=== PATIENT | male | born 1955 | race Caucasian/White ===

== ENCOUNTER → 2017-01-06 | Outpatient (CLI) | payer MEDICARE, BC ==
--- NOTE | 2017-01-06 17:07 | MR ---
EXAMINATION TYPE: MR angio head wo con DATE OF EXAM: 01/06/2017 4:36 PM COMPARISON: MR brain same date HISTORY: Glossodynia and headaches TECHNIQUE: Time of flight images focusing on the [place] were performed without contrast. Th ree-dimensional reconstructions were performed. FINDINGS: The internal carotid arteries, vertebrobasilar system are patent. Left vertebral artery is dominant. No evident vasculitis. There is no evident aneurysm or vascular malformation. IMPRESSION: No significant abnormality is evident to account for patient's symptoms.
--- NOTE | 2017-01-06 17:14 | MR ---
MRI brain without contrast HISTORY: Headaches, glossodynia Multiplanar multisequence imaging obtained through the brain. Correlation to MRA brain same date There is no restricted diffusion. There is no hemorrhage or hydrocephalus. Scattered hyperintensities are present within the deep white matter on inversion recovery and T2-weighted sequences, approximat lazaro 20-30 lesions are present. There is cortical atrophy present. Mucosal disease present within the maxillary sinus, ethmoid air cells. The orbits show a symmetric appearance. Corpus callosum, pituitar y, cervical medullary junction, cerebellopontine angles are within normal limits. IMPRESSION: Age-related changes of atrophy and probable chronic small vessel ischemia. Mild sinus dis ease.
== END | disposition home or self-care (01) ==
LOC: RADMRIMAIN 15:26
PROVIDERS: ATTEND Nurse Practitioner Family
DX: G31.1 Senile degeneration of brain, not elsewhere classified (principal); K14.6 Glossodynia
CPT/HCPCS: 70544; 70551

== ENCOUNTER → 2017-04-15 | Outpatient (CLI) | payer MEDICARE, BC ==
[2017-04-15 07:37] LABS: CH 27.1; CHCM 32.2; HCT 48.6 % (39.0-53.0); HDW 2.28; HGB 15.7 gm/dL (13.0-17.5); MCH 27.3 pg (25.0-35.0); MCHC 32.3 g/dL (31.0-37.0); MCV 84.5 fL (80.0-100.0); Mean Platelet Volume 8.1; RBC 5.75 m/uL (4.30-5.90); RDW 13.4 % (11.5-15.5); WBC 9.5 k/uL (3.8-10.6)
[2017-04-15 16:10] LABS: Carbamazepine (Tegretol) 7.6 ug/mL; Potassium 3.9 mmol/L (3.5-5.1)
== END | disposition home or self-care (01) ==
LOC: LABWHC1 06:33
PROVIDERS: ATTEND Psychiatry & Neurology Neurology
DX: Z51.81 Encounter for therapeutic drug level monitoring (principal); Z79.899 Other long term (current) drug therapy
CPT/HCPCS: 36415; 80051; 80156; 82565; 84520; 85027

== ENCOUNTER → 2017-06-04 | Outpatient (CLI) | payer MEDICARE, BC ==
[2017-06-04 07:02] LABS: CH 26.8; HCT 49.7 % (39.0-53.0); HDW 2.25; HGB 16.8 gm/dL (13.0-17.5); MCH 27.8 pg (25.0-35.0); MCHC 33.9 g/dL (31.0-37.0); MCV 81.8 fL (80.0-100.0); Mean Platelet Volume 8.2; RBC 6.07 m/uL (4.30-5.90); RDW 13.4 % (11.5-15.5); WBC 9.7 k/uL (3.8-10.6)
[2017-06-04 07:14] LABS: Potassium 4.1 mmol/L (3.5-5.1)
[2017-06-04 10:25] LABS: Carbamazepine (Tegretol) 8.1 ug/mL
== END | disposition home or self-care (01) ==
LOC: LABWHC1 06:39
PROVIDERS: ATTEND Psychiatry & Neurology Neurology
DX: Z51.81 Encounter for therapeutic drug level monitoring (principal); Z79.899 Other long term (current) drug therapy
CPT/HCPCS: 36415; 80051; 80156; 82565; 84520; 85027

== ENCOUNTER → 2017-08-03 | Outpatient (CLI) | payer MEDICARE, BC ==
--- NOTE | 2017-08-03 07:41 | US ---
EXAMINATION TYPE: US kidneys/renal and bladder DATE OF EXAM: 08/03/2017 COMPARISON: 08/03/2015 CLINICAL HISTORY: N18.9 Chronic Kidney Disease, unspecified. EXAM MEASUREMENTS: Right Kidney: 12.1 x 6.7 x 5.6 cm Left Kidney: 12.3 x 7.0 x 5.7 cm Right Kidney: No hydronephrosis or masses seen Left Kidney: Multiple cysts the largest as follows 1.) upper pole, 9.6 x 8.2 x 8.4cm, 2.) mid pole, 6 .4 x 5.1 x 5.9cm, 3.) lower pole, 1.5 x 1.4 x 1.5cm . The largest cyst has increased from the prior e xam where it measured 6.5 x 8.3 x 7.0 cm. Bladder: wnl Bilateral Jets seen: yes There is no evidence for hydronephrosis at this point in time. Cortical medullary differentiation is maintained. No cortical thinning. No nephrolithiasis is seen. The urinary bladder is anechoic. Bila teral ureteral jets are seen. IMPRESSION: Multiple enlarging simple appearing left renal cysts, the largest measuring up to 9.6 cm.
== END | disposition home or self-care (01) ==
LOC: RADUSWWP 06:51
PROVIDERS: ATTEND Family Medicine
DX: N28.1 Cyst of kidney, acquired (principal); N18.9 Chronic kidney disease, unspecified
CPT/HCPCS: 76770

== ENCOUNTER 2019-04-26 08:13 | Day surgery (SDC) | payer MEDICARE ==
[2019-04-25 08:42] VITALS: BMI 35.5
[~2019-04-26 08:13] MED LIST: LACTATED RINGERS 1,000 ML IV SCH
[2019-04-26 08:38] VITALS: TEMP 96.9
[2019-04-26] MEDS ORDERED: MIDAZOLAM 2 MG/2 ML VIAL ONE (10:16)
[2019-04-26] MEDS ORDERED: PROPOFOL 10 MG/ML 20 ML VIAL IV ONE (10:16)
[2019-04-26] MEDS ORDERED: fentaNYL (PF) 50 MCG/ML 2 ML AMP ONE (10:16)
[2019-04-26] MEDS ORDERED: LIDOCAINE 1% INJ 10MG/ML (20 ML MDV) ONE (10:16)
--- NOTE | 2019-04-26 10:47 | P.PCN ---
Date of Procedure: 04/26/19 Procedure(s) Performed: Procedure: Colonoscopy and polypectomy. Preoperative diagnosis: Screening for neoplasia. Postoperative diagnosis: 1. Small cecal polyp snared but no large polyps or cancer. 2. Diverticulosis with no evidence of acute diverticulitis or strictures. Preparation: HalfLytely prep. Sedation: Was provided by anesthesia Brief clinical history: The patient is a 63-year-old male who is scheduled for this evaluation for screening for neoplasia age being his risk factor. He had a prior exam more than 14 years ago. The patient does no abdominal complaints, bleeding or anemia. Procedure: With the patient on his left lateral decubitus position and after informed consent and the perianal area was inspected and it did not show any fissures or fistulas. No masses were felt on digital rectal examination. The Olympus CFH 190L video colonoscope was then inserted in the rectum in the usual fashion and advanced to the cecum. There were multiple diverticular orifices seen scattered in the sigmoid and left side with occasional orifice around the hepatic flexure and on the right side. No evidence of diverticulitis or strictures. The mucosa appeared healthy. There was a small polyp in the cecum which was snared and retrieved by suction but there were no large polyps or cancer. I retroflexed the endoscope in the rectum before the endoscope was withdrawn. The patient tolerated the procedure well. Plan: The patient was reassured. Will await pathology results and likely r ecommend repeat exam in around 5 years.
[2019-04-26 10:50] VITALS: PULSE 53; RESP 16
[2019-04-26 11:08] VITALS: BP 120/77
== END 2019-04-26 11:29 | disposition home or self-care (01) ==
LOC: ORWHC2ENDO 08:13
DX: Z12.11 Encounter for screening for malignant neoplasm of colon (principal); D12.0 Benign neoplasm of cecum; K57.30 Diverticulosis of large intestine without perforation or abscess without bleeding; G47.33 Obstructive sleep apnea (adult) (pediatric); I12.9 Hypertensive chronic kidney disease with stage 1 through stage 4 chronic kidney disease, or unspecified chronic kidney disease; N18.9 Chronic kidney disease, unspecified; M19.90 Unspecified osteoarthritis, unspecified site; Z88.5 Allergy status to narcotic agent; Z88.0 Allergy status to penicillin; Z99.89 Dependence on other enabling machines and devices; Z79.82 Long term (current) use of aspirin; Z79.899 Other long term (current) drug therapy; Z86.73 Personal history of transient ischemic attack (TIA), and cerebral infarction without residual deficits; Z91.030 Bee allergy status
CPT/HCPCS: 88305; 45385; J2250; J2001; J3010; J2704

== ENCOUNTER → 2019-10-10 | Outpatient (CLI) | payer MEDICARE ==
[2019-10-10 14:43] LABS: HCT 49.6 % (39.0-53.0); HGB 16.4 gm/dL (13.0-17.5); MCHC 33.1 g/dL (31.0-37.0); MCV 84.4 fL (80.0-100.0); Mean Platelet Volume 7.1; Platelet Count 173 k/uL (150-450); RBC 5.87 m/uL (4.30-5.90); RDW 12.3 % (11.5-15.5); WBC 7.9 k/uL (3.8-10.6)
[2019-10-10 15:29] LABS: Appearance,Urine Clear (Clear); Bilirubin,Urine Negative (Negative); Blood,Urine Negative (Negative); Color,Urine Yellow; Glucose,Urine (UA) Negative (Negative); Ketones,Urine Negative (Negative); Leukocyte Esterase,Urine Negative (Negative); Nitrite,Urine Negative (Negative); Protein,Urine Negative (Negative); Specific Gravity,Urine 1.018 (1.001-1.035); Urobilinogen,Urine <2.0 mg/dL (<2.0)
[2019-10-10 18:03] LABS: Carbamazepine (Tegretol) 10.1 ug/mL (4.0-12.0)
[2019-10-10 18:59] LABS: % Iron Saturation 45.99 (15.00-50.00); African American GFR (CKD) 55.8 (60.0-200.0); Albumin 4.7 g/dL (3.80-4.90); Albumin/Globulin Ratio 2.61 (1.60-3.17); Anion Gap 10.8 mmol/L (4.00-12.00); BUN/Creat Ratio 23.33 Ratio (12.00-20.00); Calcium 9.3 mg/dL (8.7-10.3); Carbon Dioxide 30.2 mmol/L (21.6-31.8); Globulin 1.8 g/dL (1.6-3.3); Magnesium 2.3 mg/dL (1.5-2.4); Phosphorus 3.9 mg/dL (2.4-5.1); Potassium 4.6 mmol/L (3.5-5.5); Total Bilirubin 0.4 mg/dL (0.3-1.2); Total Protein 6.5 g/dL (6.2-8.2); Uric Acid 5.5 mg/dL (3.7-8.7)
[2019-10-10 19:02] LABS: Ferritin 403.3 ng/mL (22.0-322.0)
== END | disposition home or self-care (01) ==
LOC: LABWHC1 13:02
PROVIDERS: ATTEND Internal Medicine
DX: N39.0 Urinary tract infection, site not specified (principal); M10.9 Gout, unspecified; N25.81 Secondary hyperparathyroidism of renal origin; D63.1 Anemia in chronic kidney disease; N18.3 Chronic kidney disease, stage 3 (moderate); Z79.899 Other long term (current) drug therapy
CPT/HCPCS: 36415; 80053; 80156; 81003; 82728; 83540; 83550; 83735; 83970; 84100; 84550; 85027

== ENCOUNTER → 2020-06-28 | Outpatient (CLI) | payer MEDICARE ==
--- NOTE | 2020-06-28 13:20 | CONS ---
CONSULTATION DATE OF SERVICE: 06/28/2020 A 64-year-old gentleman who has been evaluated in the Sleep Clinic for obstructive sleep apnea-hypopnea syndrome. Last time patient was seen in our office in 2011. At that time, he had CPAP titration which showed that effective pressure for treatment of obstructive sleep apnea-hypopnea syndrome was 12 cm of water. According to the patient, he continued to use his CPAP equipment until recently when CPAP unit was broke. Presently, his sleep schedule from around 8 pm until 8 am. He does have problem with falling asleep. He has TV set in bedroom. He wakes up from sleep up to 5 times. No history of hypnagogic hallucinations, sleep paralysis or cataplexy. Presently while he does not have machine, he wakes up with stop breathing during the sleep, gasping for air, sweating, sleep talking. In the morning, he wakes up tired, falling asleep during the day, worry about his sleep, has sexual dysfunction. [place] Sleepiness Scale is 7. PAST MEDICAL HISTORY: Positive for hypertension, pericarditis, hyperlipidemia, panic attacks. PAST SURGICAL HISTORY: Surgery for pericarditis, cardiac ablation, sinus surgery, L3-L4 laminectomy. Wrist surgery in 2017.: MEDICATIONS: Clonazepam, amlodipine, . SOCIAL HISTORY: Negative for smoking or using alcohol. REVIEW OF SYSTEMS: Multiple awakenings from sleep. FAMILY HISTORY: Heart problems. PHYSICAL EXAM: gentleman without distress, BP 167/80, HR 68, RR 15, height 5, 10-1/2, weight 261 pounds and body mass index 36.9. Neck is 17-1/2 inches in circumference. Temperature 98.0. Oxygen saturation on room air 97%. Oropharynx - low position of soft palate. ABDOMEN: Obese. NECK: Supple, no JVD. Thyroid is not palpable. LUNGS: Clear to percussion and to auscultation. Good air exchange. No wheezing or rhonchi. HEART: S1, S2 regular. No murmurs, gallops, or rubs. EXTREMITIES: No clubbing or cyanosis. PROFILING MACHINE SET UP OPERATOR TOOL: Awake, alert, and oriented X3. Cranial nerves 2 to 7 intact. There is no fasciculation or atrophy. noted. No focal deficits observed. IMPRESSION: 1. History of obstructive sleep apnea, multiple awakenings from sleep, wide neck. Obstructive sleep apnea-hypopnea syndrome. 2. Obesity, body mass index 36.93. 3. Hypertension. 4. Status post surgical treatment for pericarditis in the past. 5. Status post cardiac ablation. 6. Hyperlipidemia. 7. History of panic attack. 8. Status post sinus surgery. 9. Status post L3-L4 laminectomy. 10.Status post recent surgery 2017. PLAN: 1. Home sleep apnea test for reevaluation of patient breathing at the present time. 2. CPAP titration for correction of respiratory abnormalities at the present time and to check what type of PAP unit he needs. 3. Losing weight. 4. Sleep hygiene with regular time on bed for least 7-1/2 to 8 hours. 5. No driving if feeling sleepiness. Thank you very much for allowing me to participate in the management of your patient. Sincerely, Zcaarias Renee MD, PhD, FAASM Diplomat of [place] [employer] [place] [employer] Parking Meter Collector of [facility] [place] MMODL / SARIN: [id number] /
== END | disposition home or self-care (01) ==
LOC: SLEEP 11:42
PROVIDERS: ATTEND Internal Medicine
DX: G47.33 Obstructive sleep apnea (adult) (pediatric) (principal); E66.9 Obesity, unspecified; I10 Essential (primary) hypertension; E78.5 Hyperlipidemia, unspecified; Z68.36 Body mass index [BMI] 36.0-36.9, adult; Z98.890 Other specified postprocedural states; Z86.59 Personal history of other mental and behavioral disorders; Z79.899 Other long term (current) drug therapy
CPT/HCPCS: 99211

== ENCOUNTER → 2020-11-29 | Outpatient (CLI) | payer MEDICARE ==
--- NOTE | 2020-11-29 23:41 | SFUN ---
SLEEP CENTER FOLLOW UP NOTE DATE OF SERVICE: 11/29/2020 64-year-old gentleman who has been followed in Sleep Center for treatment of obstructive sleep apnea-hypopnea syndrome. Recently, patient had a home sleep apnea test which showed severe sleep apnea. I discussed results of the sleep study with the patient and he had CPAP titration. During titration, his respiration fully normalized. Then, patient was started on treatment with CPAP. Today is his first visit after he started BiPAP therapy. With the CPAP patient sleeps better and feels better during the day. Today's his [place] Sleepiness Scale is 3. He mentioned that he is using his machine every night religiously and he likes it and he feels better in it. I checked his CPAP unit. CPAP pressure is 12 cm of water. Usage is 100% of nights. Average usage 11.5 hours per night. Leak is 25 L/minute. Apnea-hypopnea index is only 0.4. During the home sleep apnea test, apnea-hypopnea index was 66.2 with oxygen desaturation to 75%. MEDICATIONS: Amlodipine, hydrochlorothiazide, carbamazepine, metoprolol, gabapentin, duloxetine, atorvastatin, aspirin, clonazepam. PHYSICAL EXAM: Patient in no distress. BP 153/82, HR 70, RR 15, weight 260.6 pounds. Temperature 98.4, oxygen saturation at room air 95%. Oropharynx: Low position of soft palate. NECK: Supple, no JVD. Thyroid is not palpable. LUNGS: Clear to percussion and to auscultation. Good air exchange. No wheezing or rhonchi. HEART: S1, S2 regular. No murmurs, gallops, or rubs. ABDOMEN: Obese. Soft and nontender. Bowel sounds are present. No organomegaly appreciated. EXTREMITIES: No clubbing or cyanosis. PRIVATE ADVISOR: Awake, alert, and oriented X3. Cranial nerves 2 to 7 intact. There is no fasciculation or atrophy. noted. No focal deficits observed. IMPRESSION: 1. Obstructive sleep apnea-hypopnea syndrome. Patient demonstrated 100% compliance with treatment, benefitting from treatment. 2. Obesity. 3. Hypertension. 4. Status post surgical treatment for pericarditis in the past. 5. Status post cardiac ablation. 6. Hyperlipidemia. 7. History of panic attack. 8. Status post sinus surgery. 9. Status post L3-L4 laminectomy. PLAN: 1. Patient will continue to use PAP equipment every night for the whole night. 2. Sleep hygiene with regular time in bed for at least 7-1/2 to 8 hours. 3. Precautions related to driving. No driving if feeling sleepiness. 4. I will maintain all necessary prescription for PAP supplies including mask, tube, filters. 5. Watching weight. 6. No driving if feeling sleepiness. 7. Follow-up visit in 6 months or earlier if patient has any problems. Thank you very much for allowing me to participate in the management of your patient. Sincerely, Zacarias Renee MD, PhD, FAASM Diplomat of [place] [employer] [place] [employer] Food And Beverage Analyst of [facility] [place] MMODL / IJN: [id number] /
== END | disposition home or self-care (01) ==
LOC: SLEEP 15:52
PROVIDERS: ATTEND Internal Medicine
DX: G47.33 Obstructive sleep apnea (adult) (pediatric) (principal); E66.9 Obesity, unspecified; I10 Essential (primary) hypertension; E78.5 Hyperlipidemia, unspecified; Z99.89 Dependence on other enabling machines and devices; Z98.890 Other specified postprocedural states; Z86.61 Personal history of infections of the central nervous system

== ENCOUNTER → 2021-06-13 | Outpatient (CLI) | payer MEDICARE ==
--- NOTE | 2021-06-13 20:29 | SFUN ---
SLEEP CENTER FOLLOW UP NOTE DATE OF SERVICE: 06/13/2021 65-year-old gentleman has been followed in Sleep Center for treatment of obstructive sleep apnea-hypopnea syndrome. Patient continued to use his CPAP equipment every night for the whole night. He does not snore with the machine. [place] Sleepiness Scale today is 2, which is absolutely normal. I checked CPAP unit and the filter is in very bad shape, looks dirty. CPAP 12 cm of water, usage 30/30 nights for more than 4 hours, average of 1.2 hours per night. Leak is 30 L/minute, which is slightly high. Patient had said that possibly he will open his mouth during sleep. He is using a nasal mask. Apnea-hypopnea index is only 0.7, which is totally normal. MEDICATIONS: Carbamazepine 400 mg twice a day. Gabapentin 600 mg as needed, clonazepam 2 mg twice a day, amlodipine 10 mg once a day. Duloxetine 60 mg once a day, Triamterene once a day. Metoprolol 100 mg, half of a tablet twice a day, atorvastatin 40 mg once a day. PHYSICAL EXAMINATION: GENERAL: Patient in no distress. BP 156/76, HR 58, RR 15, height 5 feet 11 inches, weight 259 pounds. Body mass index 36.1, temperature 97.7, oxygen saturation room air 96% HEENT: Examination of oropharynx shows low position of soft palate. PERRLA, EOMI, evaluation of oropharynx showed tongue protrudes midline. NECK: Supple, no JVD. Thyroid is not palpable. LUNGS: Clear to percussion and to auscultation. Good air exchange. No wheezing or rhonchi. HEART: S1, S2 regular. No murmurs, gallops, or rubs. ABDOMEN: Soft and nontender. Bowel sounds are present. No organomegaly appreciated. EXTREMITIES: No clubbing or cyanosis. PHOTOENGRAVER APPRENTICE: Awake, alert, and oriented X3. Cranial nerves 2 to 7 intact. There is no fasciculation or atrophy. noted. No focal deficits observed. IMPRESSION: 1. Obstructive sleep apnea-hypopnea syndrome. Patient demonstrated 100% compliance with treatment benefitting from treatment. 2. Obesity. 3. Hypertension. 4. Status post surgical treatment for pericarditis in the past. 5. Status post cardiac ablation. 6. Hyperlipidemia. 7. History of panic attack. 8. Status post sinus surgery. 9. Status post L3-L4 laminectomy. PLAN: 1. Replace her filter immediately. Patient has it at home, just did not replace it. 2. Patient will continue to use PAP equipment every night for the whole night. 3. Sleep hygiene with regular time in bed for at least 7-1/2 to 8 hours. 4. Precautions related to driving. No driving if feeling sleepiness. 5. I will maintain all necessary prescription for PAP supplies including mask, tube, filters. 6. Watching weight. 7. Follow-up visit in 6 months or earlier if patient has any problems. Thank you very much for allowing me to participate in management of this patient. Sincerely, Zacarias Renee MD, PhD, FAASM Diplomat of [place] [employer] Sleep Medicine Board of [place] [employer] of Internal Medicine Railway Track Worker of [facility] [place] MMDANGELO / DIANA: [id number] /
== END ==
LOC: SLEEP 11:11
PROVIDERS: ATTEND Internal Medicine
DX: G47.33 Obstructive sleep apnea (adult) (pediatric) (principal); E66.9 Obesity, unspecified; I10 Essential (primary) hypertension; E78.5 Hyperlipidemia, unspecified; F41.0 Panic disorder [episodic paroxysmal anxiety]; Z98.890 Other specified postprocedural states; Z68.36 Body mass index [BMI] 36.0-36.9, adult; Z79.899 Other long term (current) drug therapy; Z91.030 Bee allergy status; Z88.5 Allergy status to narcotic agent; Z88.0 Allergy status to penicillin

== ENCOUNTER → 2021-11-06 | Outpatient (CLI) | payer MEDICARE ==
--- NOTE | 2021-11-06 13:19 | US ---
EXAMINATION TYPE: US kidneys/renal and bladder DATE OF EXAM: 11/06/2021 COMPARISON: 08/03/2017 CLINICAL HISTORY: N18.3 stage3 kidney disease. Abnormal labs EXAM MEASUREMENTS: Right Kidney: 11.5 x 5.8 x 5.8 cm Left Kidney: 12.0 x 6.2 x 5.7 cm Right Kidney: Lower lateral cystic lesion = 0.9 x 1.0 x 0.7 cm Left Kidney: Multiple hypoechoic lesions visualized with largest measured. 1- Upper pole = 9.6 x 9.6 x 6.8 cm. 2- Mid pole = 8.3 x 8.0 x 5.5 cm Bladder: moderately distended, anechoic Left jet seen IMPRESSION: Bilateral hypoechoic lesions most likely on the basis of renal cysts. Similar findings from the prior exam.
[2021-11-06 14:52] LABS: Appearance,Urine Clear (Clear); Bilirubin,Urine Negative (Negative); Blood,Urine Negative (Negative); Color,Urine Yellow; Glucose,Urine (UA) Negative (Negative); Ketones,Urine Negative (Negative); Leukocyte Esterase,Urine Negative (Negative); Nitrite,Urine Negative (Negative); Protein,Urine Negative (Negative); Specific Gravity,Urine 1.018 (1.001-1.035); Urobilinogen,Urine <2.0 mg/dL (<2.0)
[2021-11-07 03:32] LABS: Microalbumin Creatinine Ratio <30 mg/g Creat (0-30); Urine Creatinine 88.7 mg/dL (39.0-259.0)
== END | disposition home or self-care (01) ==
LOC: RADUSWWP 12:39
PROVIDERS: ATTEND Internal Medicine Nephrology
DX: N18.30 Chronic kidney disease, stage 3 unspecified (principal); N28.9 Disorder of kidney and ureter, unspecified
CPT/HCPCS: 76770; 81003; 82043; 82570

== ENCOUNTER → 2021-12-11 | Outpatient (CLI) | payer MEDICARE ==
--- NOTE | 2021-12-11 15:04 | SFUN ---
SLEEP CENTER FOLLOW UP NOTE DATE OF SERVICE: 12/11/2021 65-year-old gentleman has been followed in Sleep Center for treatment of obstructive sleep apnea-hypopnea syndrome. Patient continued to use CPAP equipment every night for the whole night getting his CPAP supplies in time. [place] Sleepiness Scale today is 4 which is totally normal. I checked CPAP unit. Pressure is 12 cm of water. Usage is 30/30 nights more than 4 hours, great compliance. Leak is 30 L/minutes which is borderline. Apnea-hypopnea index only 0.7 which is normal. MEDICATIONS: Gabapentin 600 mg twice a day, clonazepam 2 mg once a day, amlodipine 10 mg once a day. Duloxetine 60 mg once a day. Triamterene once a day. Rosuvastatin 40 mg once a day, valsartan 40 mg once a day, aspirin 81 mg once a day. PHYSICAL EXAMINATION: GENERAL: Patient in no distress. BP 117/66, HR 63, RR 15, height 5 feet 10 inches, weight 253.2, body mass index 36.3, temperature 97.7, oxygen saturation at room air 96%. OROPHARYNX: Low position of soft palate. NECK: Supple, no JVD. Thyroid is not palpable. LUNGS: Clear to percussion and to auscultation. Good air exchange. No wheezing or rhonchi. HEART: S1, S2 regular. No murmurs, gallops, or rubs. ABDOMEN: Slightly obese. Soft and nontender. Bowel sounds are present. No organomegaly appreciated. EXTREMITIES: No clubbing or cyanosis. SUPERVISOR NET MAKING: Awake, alert, and oriented X3. Cranial nerves 2 to 7 intact. There is no fasciculation or atrophy. noted. No focal deficits observed. IMPRESSION: 1. Obstructive sleep apnea-hypopnea syndrome. Patient demonstrated great compliance with treatment. Normal respiration on CPAP, benefitting from treatment. 2. Obesity, patient lost 6 pounds since previous visit. 3. Hypertension. 4. Status post cardiac ablation for supraventricular tachycardia. No recent episodes of cardiac arrhythmia. 5. Status post surgical treatment for pericarditis in the past. 6. Hyperlipidemia. 7. History of panic attack. 8. Status post sinus surgery. 9. Status post L3-L4 laminectomy. PLAN: 1. Patient will continue to use PAP equipment every night for the whole night. 2. Sleep hygiene with regular time in bed for at least 7-1/2 to 8 hours. 3. Precautions related to driving. No driving if feeling sleepiness. 4. I will maintain all necessary prescription for PAP supplies including mask, tube, filters. 5. Watching weight. 6. Follow-up visit in 6 months or earlier if patient has any problems. Thank you very much for allowing me to participate in the management of your patient. Sincerely, Zacarias Renee MD, PhD, FAASM Diplomat of [place] Of [place] Board of Medical Specialties Sleep Medicine Board of Citizen Of [place] Board of Internal Medicine Insulation Estimator of [facility] [place] MMODL / SARIN: [id number] /
== END ==
LOC: SLEEP 10:30
PROVIDERS: ATTEND Internal Medicine
DX: G47.33 Obstructive sleep apnea (adult) (pediatric) (principal); E66.9 Obesity, unspecified; I10 Essential (primary) hypertension; E78.5 Hyperlipidemia, unspecified; M96.1 Postlaminectomy syndrome, not elsewhere classified; Z86.79 Personal history of other diseases of the circulatory system; Z98.890 Other specified postprocedural states; Z86.59 Personal history of other mental and behavioral disorders; Z99.89 Dependence on other enabling machines and devices; Z68.36 Body mass index [BMI] 36.0-36.9, adult; Z79.82 Long term (current) use of aspirin; Z88.5 Allergy status to narcotic agent; Z88.0 Allergy status to penicillin; Z91.030 Bee allergy status

== ENCOUNTER → 2021-12-17 | Outpatient (CLI) | payer MEDICARE ==
[2021-12-17 09:57] LABS: Appearance,Urine Clear (Clear); Bilirubin,Urine Negative (Negative); Blood,Urine Negative (Negative); Color,Urine Yellow; Glucose,Urine (UA) Negative (Negative); Ketones,Urine Negative (Negative); Leukocyte Esterase,Urine Negative (Negative); Nitrite,Urine Negative (Negative); PH, Urine 6.5 (5.0-8.0); Protein,Urine Negative (Negative); Specific Gravity,Urine 1.019 (1.001-1.035); Urobilinogen,Urine <2.0 mg/dL (<2.0)
[2021-12-17 15:02] LABS: HCT 49.3 % (39.6-50.0); HGB 15.5 g/dL (13.0-17.0); MCH 26.9 pg (27.0-32.0); MCHC 31.4 g/dL (32.0-37.0); MCV 85.6 fL (80.0-97.0); Mean Platelet Volume 11.1 fL (9.5-12.2); Platelet Count 191 X 10*3/uL (140-440); RBC 5.76 X 10*6/uL (4.40-5.60); RDW 13.2 % (11.5-14.5); WBC 7.27 X 10*3/uL (4.50-10.00)
[2021-12-17 15:07] LABS: Uric Acid 6.2 mg/dL (3.7-8.7)
[2021-12-17 15:08] LABS: % Iron Saturation 45.82 (15.00-50.00); African American GFR (CKD) 54.6 (60.0-200.0); Albumin 4.5 g/dL (3.8-4.9); Albumin/Globulin Ratio 1.93 (1.60-3.17); Anion Gap 12.1 mmol/L (10.00-18.00); BUN/Creat Ratio 21.72 Ratio (12.00-20.00); Blood Urea Nitrogen 32.8 mg/dL (9.0-27.0); Calcium 9.2 mg/dL (8.7-10.3); Carbon Dioxide 28.4 mmol/L (20.0-27.5); Globulin 2.3 g/dL (1.6-3.3); Magnesium 2.5 mg/dL (1.5-2.4); Non-African American GFR(CKD) 47.1 (60.0-200.0); Phosphorus 2.9 mg/dL (2.4-5.1); Potassium 3.7 mmol/L (3.5-5.5); Total Bilirubin 0.3 mg/dL (0.30-1.20); Total Protein 6.9 g/dL (6.2-8.2)
== END | disposition home or self-care (01) ==
LOC: LABWHC1 08:30
PROVIDERS: ATTEND Nurse Practitioner Family
DX: N25.81 Secondary hyperparathyroidism of renal origin (principal); D64.9 Anemia, unspecified; N39.0 Urinary tract infection, site not specified; R80.9 Proteinuria, unspecified; E55.9 Vitamin D deficiency, unspecified; M10.9 Gout, unspecified; N18.30 Chronic kidney disease, stage 3 unspecified
CPT/HCPCS: 36415; 80053; 81003; 82043; 82306; 82570; 82728; 83540; 83550; 83735; 83970; 84100; 84550; 85027

== ENCOUNTER → 2022-07-02 | Outpatient (CLI) | payer MEDICARE ==
--- NOTE | 2022-07-02 11:38 | P.PN ---
Subjective DATE: 07/02/2022 FOLLOW UP VISIT. Patient with obstructive sleep apnea hypopnea syndrome return to sleep center for follow-up visit. Information from previous visit have been reviewed. Patient is using PAP equipment every night for the whole night, getting PAP supplies in time. The patient does not have significant problems with the mask, PAP unit and humidification. [place] sleepiness scale is 2. I checked PAP unit. PAP unit pressure 12 cm H2O. Usage is 100 % for more then 4 hours, average 11.9 hours per night. Leak is 41 l/m, which is increased. Apnea Hypopnea Index is 0.5, which is normal. MEDICATIONS:1. Gabapentin 400 mg twice a day 2. Clonazepam 2 mg twice a day 3. Amlodipine 10 mg once a day 4. Triamteren once a day 5. Duloxetine 60 mg once a day 6. Rosuvastatin 40 mg once a day 7. Valsartan 40 mg once a day During physical exam: GENERAL: A pleasant patient without any distress. VITAL SIGNS: BP 134/76, HR 67, RR 16, weight 259 patient and his weight on 6 pounds, temperature 97.6, oxygen saturation at room air 97 % . HEENT: PERRLA, EOMI.low position of soft palate, Mallapati 3 . NECK: Supple. No JVD. LUNGS: Clear to percussion and to auscultation. Good air exchange. No wheezing or rhonchi. HEART: S1, S2 regular. ABDOMEN: Soft and nontender. Obese EXTREMITIES: No clubbing or cyanosis. MEDICAL ACCOUNTING CLERK: Awake, alert, and oriented x3. No focal deficit. Impressions: 1. Obstructive sleep apnea-hypopnea syndrome. Patient demonstrated great compliance with treatment, benefiting from treatment. Normal respiration on CPAP. 2. Obesity patient increase a weight of 6 pounds complaining for the previous visit. 3. Hypertension. 4. History of supraventricular tachycardia, status post cardiac ablation. 5. Status post surgical treatment for pericarditis. 6. Hyperlipidemia. 7. History of panic attacks. 8. Status post sinus surgery. 9. Status post L3L4 laminectomy. Plan: 1. Continue using PAP equipment every night for the whole night. 2. To change air filter at least 1-2 times per month. 3. PAP unit should stay lower then position of the head. 4. Advised patient to remove all remaining water from humidifier canister daily and make it dry after each usage. Refill canister with fresh distilled water before each usage. 5. Sleep hygiene with regular time in bed for at least 8 hours. 6. Precautions related to driving. No driving if feel any sleepiness. 7. I will maintain prescription for PAP supplies including mask, tube, filters. 8. Follow up visit in 6 months or earlier if patient has any problems. 9. Losing weight. Thank you very much for allowing me to participate in the management of your patient. Zacarias Renee MD, PhD, FAASM. Diplomat of [place] [employer] Medicine, Sleep Medicine Board by [place] Board [employer] Medicine Egg Producer of [facility] [place]
== END ==
LOC: SLEEP 10:52
PROVIDERS: ATTEND Internal Medicine
DX: G47.33 Obstructive sleep apnea (adult) (pediatric) (principal); E66.9 Obesity, unspecified; I10 Essential (primary) hypertension; E78.5 Hyperlipidemia, unspecified; F41.0 Panic disorder [episodic paroxysmal anxiety]; Z98.890 Other specified postprocedural states; Z86.79 Personal history of other diseases of the circulatory system; Z79.899 Other long term (current) drug therapy; Z91.030 Bee allergy status; Z88.5 Allergy status to narcotic agent; Z88.0 Allergy status to penicillin

== ENCOUNTER → 2022-11-19 | Outpatient (CLI) | payer MEDICARE ==
[2022-11-19 22:47] LABS: HCT 49.2 % (39.6-50.0); HGB 15.2 g/dL (13.0-17.0); MCH 26.5 pg (27.0-32.0); MCHC 30.9 g/dL (32.0-37.0); MCV 85.7 fL (80.0-97.0); Mean Platelet Volume 10.9 fL (9.5-12.2); NRBC Per 100 WBC 0 /100 WBCS (0.0-0.0); Platelet Count 210 X 10*3/uL (140-440); RBC 5.74 X 10*6/uL (4.40-5.60); RDW 13.2 % (11.5-14.5); WBC 7.97 X 10*3/uL (4.50-10.00)
[2022-11-20 00:09] LABS: % Iron Saturation 33.37 (15.00-50.00); ALT 69 U/L (10-49); AST 46 U/L (14-35); African American GFR (CKD) 57.9 (60.0-200.0); Albumin 4.6 g/dL (3.8-4.9); Albumin/Globulin Ratio 2.51 (1.60-3.17); Alkaline Phosphatase 68 U/L (41-126); BUN/Creat Ratio 19.51 Ratio (12.00-20.00); Blood Urea Nitrogen 27.9 mg/dL (9.0-27.0); Calcium 9.1 mg/dL (8.7-10.3); Carbon Dioxide 26.3 mmol/L (20.0-27.5); Chloride 101 mmol/L (96-109); Globulin 1.8 g/dL (1.6-3.3); Glucose 93 mg/dL (70-110); Iron 107 ug/dL (65-175); Magnesium 2.5 mg/dL (1.5-2.4); Phosphorus 2.9 mg/dL (2.4-5.1); Sodium 138 mmol/L (135-145); Total Bilirubin <0.15 mg/dL (0.30-1.20); Total Iron Binding Capacity 321 ug/dL (228-460); Total Protein 6.4 g/dL (6.2-8.2); Uric Acid 5.8 mg/dL (3.7-8.7)
== END | disposition home or self-care (01) ==
LOC: LABWHC1 14:04
PROVIDERS: ATTEND Internal Medicine
DX: N18.32 Chronic kidney disease, stage 3b (principal); N39.0 Urinary tract infection, site not specified; N25.81 Secondary hyperparathyroidism of renal origin; M10.9 Gout, unspecified; E55.9 Vitamin D deficiency, unspecified; D63.1 Anemia in chronic kidney disease
CPT/HCPCS: 36415; 80053; 83540; 83550; 83735; 83970; 84100; 84550; 85027

== ENCOUNTER → 2022-12-03 | Outpatient (CLI) | payer MEDICARE ==
--- NOTE | 2022-12-03 09:29 | US ---
EXAMINATION TYPE: US kidneys/renal and bladder DATE OF EXAM: 12/03/2022 COMPARISON: Ultrasound most recent 11/06/2021 CLINICAL HISTORY: N18.32 CKD STAGE 3B. EXAM MEASUREMENTS: Right Kidney: 11.5 x 5.9 x 5.9 cm Left Kidney: 11.6 x 5.4 x 6.6 cm Right Kidney: inferior cysts, 1.) 0.9 x 1.0 x 0.7cm, 2.) 0.8 x 0.6 x 0.7cm Left Kidney: multiple cysts, largest 2 measuring 1.) upper 0.8 x 8.0 x 10.4cm. 2.) mid 7.4 x 5.7 x 7. 3cm Bladder: wnl as seen, not fully distended Bilateral Jets seen: left jet seen, right not visualized There is no evidence for hydronephrosis at this point in time. No nephrolithiasis is seen. No roberto s are identified. The urinary bladder is anechoic. Left ureteral jet visualized.. IMPRESSION: 1. No evidence for obstructive uropathy. 2. Left renal cysts.
== END | disposition home or self-care (01) ==
LOC: RADUSWWP 08:36
PROVIDERS: ATTEND Internal Medicine
DX: N18.32 Chronic kidney disease, stage 3b (principal); N28.1 Cyst of kidney, acquired
CPT/HCPCS: 76770

== ENCOUNTER → 2023-04-03 | Outpatient (CLI) | payer MEDICARE ==
[2023-04-03 15:21] LABS: % Iron Saturation 36.33 (15.00-50.00); African American GFR (CKD) 54.3 (60.0-200.0); Albumin 4.8 g/dL (3.8-4.9); Albumin/Globulin Ratio 2.53 (1.60-3.17); Anion Gap 13.9 mmol/L (10.00-18.00); BUN/Creat Ratio 18.73 Ratio (12.00-20.00); Blood Urea Nitrogen 28.1 mg/dL (9.0-27.0); Calcium 9.3 mg/dL (8.7-10.3); Carbon Dioxide 26.1 mmol/L (20.0-27.5); Globulin 1.9 g/dL (1.6-3.3); Magnesium 2.3 mg/dL (1.5-2.4); Non-African American GFR(CKD) 46.8 (60.0-200.0); Phosphorus 2.8 mg/dL (2.4-5.1); Potassium 3.9 mmol/L (3.5-5.5); Total Bilirubin 0.3 mg/dL (0.30-1.20); Total Protein 6.7 g/dL (6.2-8.2); Uric Acid 5.9 mg/dL (3.7-8.7)
[2023-04-03 16:41] LABS: Basophils # (A) 0.06 X 10*3/uL (0.00-0.10); Basophils % (A) 0.8 %; Eosinophils # (A) 0.06 X 10*3/uL (0.04-0.35); Eosinophils % (A) 0.8 %; HCT 49.1 % (39.6-50.0); HGB 15.8 g/dL (13.0-17.0); Immature Grans, Automated 0.4 %; Lymphocytes # (A) 1.54 X 10*3/uL (0.90-5.00); Lymphocytes % (A) 19.4 %; MCH 27.6 pg (27.0-32.0); MCHC 32.2 g/dL (32.0-37.0); MCV 85.8 fL (80.0-97.0); Mean Platelet Volume 11.1 fL (9.5-12.2); Monocytes # (A) 0.52 X 10*3/uL (0.20-1.00); Monocytes % (A) 6.5 %; NRBC Per 100 WBC 0 /100 WBCS (0.0-0.0); Neutrophils # (A) 5.74 X 10*3/uL (1.80-7.70); Neutrophils % (A) 72.1 %; Platelet Count 186 X 10*3/uL (140-440); RBC 5.72 X 10*6/uL (4.40-5.60); RDW 13.6 % (11.5-14.5); WBC 7.95 X 10*3/uL (4.50-10.00)
[2023-04-03 17:29] LABS: Microalbumin Creatinine Ratio <30 mg/g Creat (0-30)
[2023-04-04 09:31] LABS: Appearance,Urine Clear (Clear); Bilirubin,Urine Negative (Negative); Blood,Urine Negative (Negative); Color,Urine Yellow (Yellow); Ketones,Urine Negative (Negative); Nitrite,Urine Negative (Negative); PH, Urine 5.5 (5.0-8.0); Specific Gravity,Urine 1.018 (1.001-1.030); Urobilinogen,Urine 0.2 (0.2,1.0)
== END | disposition home or self-care (01) ==
LOC: LABWHC1 08:18
PROVIDERS: ATTEND Psychiatry & Neurology Psychiatry
DX: N25.81 Secondary hyperparathyroidism of renal origin (principal); N18.32 Chronic kidney disease, stage 3b; D63.1 Anemia in chronic kidney disease; N39.0 Urinary tract infection, site not specified; E55.9 Vitamin D deficiency, unspecified; M10.9 Gout, unspecified; R80.9 Proteinuria, unspecified
CPT/HCPCS: 36415; 80053; 81003; 82043; 82306; 82570; 83540; 83550; 83735; 83970; 84100; 84550; 85025

== ENCOUNTER → 2024-03-09 | Outpatient (CLI) | payer MEDICARE ==
[2024-03-09 15:32] VITALS: BP 126/77; PULSE 79; RESP 18; TEMP 98.2
--- NOTE | 2024-03-09 15:33 | P.PN ---
Subjective DATE: 03/09/2024 FOLLOW UP VISIT. Patient with obstructive sleep apnea hypopnea syndrome return to sleep center for follow-up visit. Information from previous visit have been reviewed. Patient is using PAP equipment every night for the whole night, getting PAP supplies in time. The patient does not have significant problems with the mask, PAP unit and humidification. [place] sleepiness scale is 1, which is perfect. I checked information from PAP unit. PAP unit pressure 12 cm H2O. Usage is 100% for more then 4 hours, average 11.8 hours per night. Leak is 32 l/m, which is in acceptable range. Apnea Hypopnea Index is 0.4, which is normal. MEDICATIONS:1. Amlodipine 10 mg once a day 2. Clonazepam 3. Rosuvastatin 40 mg once a day 4. Valsartan 80 mg once a day 5. Farxciga 6. Tamsulosin 0.4 mg once a day During physical exam: GENERAL: A pleasant patient without any distress. VITAL SIGNS: Please see below, weight 256.2 pounds. HEENT: PERRLA, EOMI.low position of soft palate, Mallapati 3 . NECK: Supple. No JVD. LUNGS: Clear to percussion and to auscultation. Good air exchange. No wheezing or rhonchi. HEART: S1, S2 regular. ABDOMEN: Soft and nontender. Obese EXTREMITIES: No clubbing or cyanosis. MOTOR AND GENERATOR BRUSH CUTTER: Awake, alert, and oriented x3. No focal deficit. Impressions: 1. Obstructive sleep apnea-hypopnea syndrome. Patient demonstrated great compliance with treatment, benefiting from treatment. 2. Obesity, patient lost 9 pounds comparing with previous visit. 3. Status post right knee replacement in July 2023. 4. Hypertension. 5. History of SVT, status post cardiac ablation. 6. Hyperlipidemia. 7. Status post surgical treatment for pericarditis. 8. Status post L3-L4 laminectomy. Plan: 1. Continue using PAP equipment every night for the whole night. 2. To change air filter at least 1-2 times per month. 3. PAP unit should stay lower then position of the head. 4. Advised patient to remove all remaining water from humidifier canister daily and make it dry after each usage. Refill canister with fresh distilled water before each usage. 5. Sleep hygiene with regular time in bed for at least 8 hours. 6. Precautions related to driving. No driving if feel any sleepiness. 7. I will maintain prescription for PAP supplies including mask, tube, filters. 8. Follow up visit in 6 months or earlier if patient has any problems. 9. Watching and continue losing weight. Thank you very much for allowing me to participate in the management of your patient. Zacarias Renee MD, PhD, FAASM. Diplomat of [place] [employer] Sleep Medicine, Sleep Medicine Board by [place] [employer] Medicine Senior Systems Programmer of [facility] [place] Objective - Vital Signs Vital signs: Vital Signs Temp 98.2 F 03/09/24 15:02 Pulse 79 03/09/24 15:02 Resp 18 03/09/24 15:02 BP 126/77 03/09/24 15:02 Pulse Ox 97 03/09/24 15:02 FiO2 Intake & Output 03/08/24 03/09/24 03/09/24 18:59 06:59 18:59 Weight 116.12 kg
== END ==
LOC: 3 N SLEEP 14:36
PROVIDERS: ATTEND Internal Medicine
DX: G47.33 Obstructive sleep apnea (adult) (pediatric) (principal); E66.9 Obesity, unspecified; I10 Essential (primary) hypertension; E78.5 Hyperlipidemia, unspecified; Z86.79 Personal history of other diseases of the circulatory system; Z96.651 Presence of right artificial knee joint; Z98.890 Other specified postprocedural states; Z99.89 Dependence on other enabling machines and devices; Z79.899 Other long term (current) drug therapy; Z91.030 Bee allergy status; Z88.5 Allergy status to narcotic agent; Z88.0 Allergy status to penicillin
CPT/HCPCS: 99212

== ENCOUNTER 2024-07-08 07:30 | Day surgery (SDC) | payer MEDICARE ==
[2024-07-08] MEDS ORDERED: PROPOFOL 10 MG/ML 20 ML VIAL IV ONE (12:43)
--- NOTE | 2024-07-15 15:55 | PCN ---
PROCEDURE NOTE REQUESTING PHYSICIAN: Dr. Zelaya BRIEF HISTORY: The patient is a 68-year-old pleasant white male, scheduled for an elective colonoscopy as a part of evaluation of chronic diarrhea for the last 6 months' duration. He has been having bowel movements anywhere from 3 to 4 a day, which are loose to watery in consistency, but no blood or mucus in the stool. He is scheduled for a colonoscopy to evaluate further. PROCEDURE PERFORMED: Colonoscopy with random biopsies. PREOPERATIVE DIAGNOSIS: Chronic diarrhea. ANESTHESIA: IV sedation per Anesthesia. DESCRIPTION OF PROCEDURE: After informed consent was obtained from the patient, he was brought into the endoscopy unit. IV conscious sedation was administered by Anesthesia under continuous monitoring. Initial digital rectal examination was normal. The Olympus CF-190 video colonoscope was then inserted into the rectum and gradually advanced into the cecum. Careful examination was performed as the scope was gradually being withdrawn. The ileocecal valve and appendiceal orifice were visualized and appeared normal. The prep was fair. Thorough irrigation was performed. Cecum, ascending colon appeared normal. In the transverse colon, there was a 5 mm sessile polyp, removed by cold biopsy. Descending colon, sigmoid colon and rectum appeared normal. Moderate sigmoid diverticulosis seen. Random biopsies were done from the ascending and descending colon to evaluate for microscopic/collagenous colitis. In the rectum, retroflexion was performed. No lesions were noted. The patient tolerated the procedure well. IMPRESSION: 1. 5 mm transverse colon polyp, status post removal by cold biopsy. 2. Moderate sigmoid diverticulosis. RECOMMENDATIONS: Findings of this examination were discussed with the patient as well as his family. He was advised to follow up with the biopsy results. If the biopsy reveals adenoma, recommend a repeat colonoscopy in 5 years. Follow up in the office in 2 to 3 weeks. MMODL / IJN: [id number] /
== END 2024-07-08 13:40 ==
LOC: ORWHC2ENDO 07:30
PROVIDERS: ATTEND Internal Medicine Gastroenterology
DX: D12.3 Benign neoplasm of transverse colon (principal); K57.30 Diverticulosis of large intestine without perforation or abscess without bleeding; K52.9 Noninfective gastroenteritis and colitis, unspecified; I10 Essential (primary) hypertension; E78.5 Hyperlipidemia, unspecified; E11.9 Type 2 diabetes mellitus without complications; I47.10 Supraventricular tachycardia, unspecified; M54.50 Low back pain, unspecified; Z88.0 Allergy status to penicillin; Z88.2 Allergy status to sulfonamides; Z88.1 Allergy status to other antibiotic agents; Z79.84 Long term (current) use of oral hypoglycemic drugs; Z79.899 Other long term (current) drug therapy
CPT/HCPCS: 45380; 88305

== ENCOUNTER → 2024-08-22 | Outpatient (CLI) | payer MEDICARE ==
--- NOTE | 2024-08-22 09:32 | CT ---
EXAMINATION TYPE: CT knee RT wo con CT DLP: 338 mGycm, Automated exposure control for dose reduction was used. DATE OF EXAM: 08/22/2024 8:48 AM COMPARISON: None CLINICAL INDICATION: Male, 68 years old with history of Z96.651 PRESENCE OF RIGHT ARTIFICIAL KNEE M25 .561; PHH, TOTAL KNEE REPLACEMENT 1 YEAR AGO, PAIN TECHNIQUE: Axial images were obtained of the CT knee RT wo con, Additional coronal and sagittal refor matted images and soft tissue and bone window were obtained for review. . Contrast used: mL of , (None if empty) Oral contrast used: (None if empty) FINDINGS: Total knee arthroplasty which limits evaluation. No evidence of periprosthetic fracture. Merrill rdware appears in appropriate position no evidence for periprosthetic lucency to suggest loosening. N o evidence for joint effusion. IMPRESSION: Postsurgical changes with hardware in appropriate position, no evidence for hardware failure. [facility], , 08/22/2024 9:29 AM
== END | disposition home or self-care (01) ==
LOC: RADCTMAIN 08:15
PROVIDERS: ATTEND Orthopaedic Surgery
DX: Z09 Encounter for follow-up examination after completed treatment for conditions other than malignant neoplasm (principal); M25.561 Pain in right knee; M17.12 Unilateral primary osteoarthritis, left knee; I10 Essential (primary) hypertension; E78.5 Hyperlipidemia, unspecified; Z96.651 Presence of right artificial knee joint

== ENCOUNTER → 2024-08-22 | Outpatient (CLI) | payer MEDICARE ==
[2024-08-22 13:17] LABS: Basophils # (A) 0.06 X 10*3/uL (0.00-0.10); Basophils % (A) 0.5 %; Eosinophils % (A) 1.8 %; HCT 47.8 % (39.6-50.0); HGB 15.3 g/dL (13.0-17.0); Lymphocytes # (A) 1.88 X 10*3/uL (0.90-5.00); Lymphocytes % (A) 16.9 %; MCH 27.6 pg (27.0-32.0); MCV 86.1 FL (80.0-97.0); Mean Platelet Volume 10.3 FL (9.5-12.2); Monocytes # (A) 1.04 X 10*3/uL (0.20-1.00); Monocytes % (A) 9.3 %; NRBC Per 100 WBC 0 X 10*3/uL (0.00-0.01); Neutrophils # (A) 7.84 X 10*3/uL (1.80-7.70); Neutrophils % (A) 70.4 %; Platelet Count 197 X 10*3/uL (140-440); RBC 5.55 X 10*6/uL (4.40-5.60); RDW 13.4 % (11.5-14.5); WBC 11.14 X 10*3/uL (4.50-10.00)
[2024-08-22 13:40] LABS: Erythrocyte Sedimentation Rate 10 mm/Hr (0-20)
== END | disposition home or self-care (01) ==
LOC: LABWHC1 08:57
PROVIDERS: ATTEND Orthopaedic Surgery
DX: Z09 Encounter for follow-up examination after completed treatment for conditions other than malignant neoplasm (principal); M25.561 Pain in right knee; E78.5 Hyperlipidemia, unspecified; I10 Essential (primary) hypertension; Z96.651 Presence of right artificial knee joint
CPT/HCPCS: 36415; 85025; 85652; 86140

== ENCOUNTER → 2024-09-22 | Outpatient (CLI) | payer MEDICARE ==
[2024-09-22 13:25] VITALS: BP 148/74; PULSE 74; RESP 16; TEMP 98.6
--- NOTE | 2024-09-22 14:24 | P.PROGSL ---
Subjective DATE: 09/22/2024 FOLLOW UP VISIT. Patient with obstructive sleep apnea hypopnea syndrome return to sleep center for follow-up visit. Information from previous visit have been reviewed. Patient is using PAP equipment every night for the whole night, getting PAP supplies in time. The patient does not have significant problems with the mask, PAP unit and humidification. [place] sleepiness scale is 2, which is perfect. I checked information from PAP unit. PAP unit pressure 12 cm H2O. Usage is 100% for more then 4 hours, average 12.8 hours per night. Leak is 32 l/m, which is increased. Apnea Hypopnea Index is 0.3, which is normal. MEDICATIONS have been reviewed, please see below. During physical exam: GENERAL: A pleasant patient without any distress. VITAL SIGNS: Please see below, weight is 263 lbs. HEENT: PERRLA, EOMI.low position of soft palate, Mallapati 3. NECK: Supple. No JVD. LUNGS: Clear to percussion and to auscultation. Good air exchange. No wheezing or rhonchi. HEART: S1, S2 regular. ABDOMEN: Soft and nontender.[] EXTREMITIES: No clubbing or cyanosis. ROLL GRINDER OPERATOR: Awake, alert, and oriented x3. No focal deficit. Impressions: 1. Obstructive sleep apnea-hypopnea syndrome. Patient demonstrated great compliance with treatment, benefiting from treatment. 2. Obesity, BMI 38.2, patient increased weight on 7 pounds comparing with previous visit. 3. Hypertension. 4. History of supraventricular tachycardia, status post cardiac ablation. 5. Status post right knee replacement in July 2023. 6. Hyperlipidemia. 7. Status post L3-L4 laminectomy. 8. Status post surgical treatment for pericarditis. Plan: 1. Continue using PAP equipment every night for the whole night. 2. Sleep hygiene with regular time in bed for at least 7.5-8 hours 3. PAP unit should stay lower then position of the head. 4. Advised patient to remove all remaining water from humidifier canister daily and make it dry after each usage. Refill canister with fresh distilled water before each usage. 5. Watching and losing weight. 6. Precautions related to driving. No driving if feel any sleepiness. 7. I will maintain prescription for PAP supplies including mask, tube, filters. 8. Follow up visit in 8 months or earlier if patient has any problems. Thank you very much for allowing me to participate in the management of your patient. Zacarias Renee MD, PhD, FAASM. Diplomat of [place] [employer], Sleep Medicine Board by [place] [employer] Applications System Analyst of [facility] [place] cc: Paula Zelaya DO Objective - Vital Signs Vital Signs: Vital Signs Temp 98.6 F 09/22/24 13:24 Pulse 74 09/22/24 13:24 Resp 16 09/22/24 13:24 BP 148/74 09/22/24 13:24 Pulse Ox 95 09/22/24 13:24 FiO2 Intake & Output 09/21/24 09/22/24 09/22/24 18:59 06:59 18:59 Weight 119.295 kg Home Medications: Home Medications Medication Instructions Recorded Confirmed Type Atorvastatin [Lipitor] 20 mg PO HS 09/06/15 09/22/24 History amLODIPine [Norvasc] 5 mg PO BID 09/06/15 09/22/24 History hydroCHLOROthiazide [Hydrodiuril] 25 mg PO DAILY 09/06/15 09/22/24 History Aspirin 81 mg PO DAILY 04/25/19 09/22/24 History DULoxetine HCL [Cymbalta] 60 mg PO DAILY 04/25/19 09/22/24 History Gabapentin [Neurontin] 1,200 mg PO BID 04/25/19 09/22/24 History Metoprolol Succinate [Toprol Xl] 100 mg PO HS 04/25/19 09/22/24 History carBAMazepine [TEGretol] 500 mg PO Q12H 04/25/19 09/22/24 History clonazePAM [KlonoPIN] 2 mg PO DAILY 04/25/19 09/22/24 History
== END ==
LOC: 3 N SLEEP 13:13
PROVIDERS: ATTEND Internal Medicine
DX: G73.3 Myasthenic syndromes in other diseases classified elsewhere (principal); E66.9 Obesity, unspecified; I10 Essential (primary) hypertension; E78.5 Hyperlipidemia, unspecified; Z98.890 Other specified postprocedural states; Z86.79 Personal history of other diseases of the circulatory system; Z96.651 Presence of right artificial knee joint; Z99.89 Dependence on other enabling machines and devices; Z68.38 Body mass index [BMI] 38.0-38.9, adult; Z88.0 Allergy status to penicillin; Z88.5 Allergy status to narcotic agent; Z91.030 Bee allergy status; Z79.899 Other long term (current) drug therapy
CPT/HCPCS: 99212

== ENCOUNTER → 2025-05-31 | Outpatient (CLI) | payer MEDICARE ==
[2025-05-31 13:23] VITALS: BP 118/69; PULSE 82; RESP 12; TEMP 98.4
--- NOTE | 2025-05-31 13:41 | P.PROGSL ---
Subjective DATE: 05/31/2025 FOLLOW UP VISIT. Patient with obstructive sleep apnea hypopnea syndrome return to sleep center for follow-up visit. Information from previous visit have been reviewed. Patient is using PAP equipment every night for the whole night, getting PAP supplies in time. The patient does not have significant problems with the mask, PAP unit and humidification. [place] sleepiness scale is, which is perfect1. I checked PAP unit. Motor life expectancy was exceeded. PAP unit pressure 12 cm H2O. Usage is 100% for more then 4 hours, average 12.3 hours per night. Leak is 43 l/m, which is in acceptable range. Apnea Hypopnea Index is 0.5, which is normal. MEDICATIONS have been reviewed, please see below. During physical exam: GENERAL: A pleasant patient without any distress. VITAL SIGNS: Please see below, weight is [] lbs. HEENT: PERRLA, EOMI.low position of soft palate, Mallapati [] . NECK: Supple. No JVD. LUNGS: Clear to percussion and to auscultation. Good air exchange. No wheezing or rhonchi. HEART: S1, S2 regular. ABDOMEN: Soft and nontender.[] EXTREMITIES: No clubbing or cyanosis. ARMED GUARD: Awake, alert, and oriented x3. No focal deficit. Impressions: 1. Obstructive sleep apnea-hypopnea syndrome. Patient demonstrated great compliance with treatment, benefiting from treatment. Motor life expectancy of CPAP unit was exceeded, but at the present time CPAP unit works well. 2. Mild obesity, BMI 33.8, patient lost 27 pounds since previous visit. 3. Hypertension. 4. History of SVT, status post cardiac ablation. 5. Status post right knee replacement in 2022. 6. Status post left knee replacement several months ago. 7. Hyperlipidemia. 8. Status post surgical treatment for pericarditis. 9. Status post L3-L4 laminectomy. Plan: 1. Continue using PAP equipment every night for the whole night. 2. Sleep hygiene with regular time in bed for at least 7.5-8 hours 3. PAP unit should stay lower then position of the head. 4. Advised patient to remove all remaining water from humidifier canister daily and make it dry after each usage. Refill canister with fresh distilled water before each usage. 5. Watching and continue losing weight. 6. Precautions related to driving. No driving if feel any sleepiness. 7. I will maintain prescription for PAP supplies including mask, tube, filters. 8. Follow up visit in 6 months or earlier if patient has any problems. Thank you very much for allowing me to participate in the management of your patient. Zacarias Renee MD, PhD, FAASM. Diplomat of [place] [employer], Sleep Medicine Board by [place] [employer] Director of [facility] [place] Objective - Vital Signs Vital Signs: Vital Signs Temp 98.4 F 05/31/25 13:23 Pulse 82 05/31/25 13:23 Resp 12 05/31/25 13:23 BP 118/69 05/31/25 13:23 Pulse Ox 97 05/31/25 13:23 FiO2 Intake & Output 05/30/25 05/31/25 05/31/25 18:59 06:59 18:59 Weight 107.048 kg Home Medications: Home Medications Medication Instructions Recorded Confirmed Type Atorvastatin [Lipitor] 20 mg PO HS 09/06/15 09/22/24 History amLODIPine [Norvasc] 5 mg PO BID 09/06/15 09/22/24 History hydroCHLOROthiazide [Hydrodiuril] 25 mg PO DAILY 09/06/15 09/22/24 History Aspirin 81 mg PO DAILY 04/25/19 09/22/24 History DULoxetine HCL [Cymbalta] 60 mg PO DAILY 04/25/19 09/22/24 History Gabapentin [Neurontin] 1,200 mg PO BID 04/25/19 09/22/24 History Metoprolol Succinate [Toprol Xl] 100 mg PO HS 04/25/19 09/22/24 History carBAMazepine [TEGretol] 500 mg PO Q12H 04/25/19 09/22/24 History clonazePAM [KlonoPIN] 2 mg PO DAILY 04/25/19 09/22/24 History
== END ==
LOC: 3 N SLEEP 13:09
PROVIDERS: ATTEND Internal Medicine
DX: G47.33 Obstructive sleep apnea (adult) (pediatric) (principal); E66.9 Obesity, unspecified; I10 Essential (primary) hypertension; E78.5 Hyperlipidemia, unspecified; Z98.890 Other specified postprocedural states; Z68.33 Body mass index [BMI] 33.0-33.9, adult; Z98.1 Arthrodesis status; Z88.5 Allergy status to narcotic agent; Z88.1 Allergy status to other antibiotic agents; Z91.030 Bee allergy status; Z96.651 Presence of right artificial knee joint; Z96.652 Presence of left artificial knee joint
CPT/HCPCS: 99212